=== PATIENT | male | born 1995 | race Caucasian/White ===

== ENCOUNTER 2023-07-13 00:10 | Emergency (ER) | payer OTHER, SELFPAY ==
[2023-07-13 00:24] VITALS: BP 135/77; PULSE 100; RESP 18; TEMP 37.3; O2SAT 97; BMI 25.1
--- NOTE | 2023-07-13 00:52 | DI.CT.S_ITS ---
PROCEDURE: CT HEAD/BRAIN WO CON INDICATIONS: migraine, new pattern TECHNIQUE: Noncontrast 4.5 mm thick angled axial sections acquired from the foramen magnum to the vertex, with coronal and sagittal reformats. For radiation dose reduction, the following was used: automated exposure control, adjustment of mA and/or kV according to patient size. COMPARISON: None. FINDINGS: Image quality: Diagnostic. CSF spaces: Basal cisterns are patent. No extra-axial fluid collections. Ventricles are normal in size and shape. Brain: No midline shift. No intracranial masses or hemorrhage. Jones-white matter interface is normal. Skull and face: Calvarium and visualized facial bones are intact, without suspicious lesions. Sinuses: Visualized sinuses and mastoids are clear. IMPRESSION: No acute intracranial pathology. Dictated by: Curtis Rivera M.D. on 07/13/2023 at 1:32 Approved by: Curtis Rivera M.D. on 07/13/2023 at 1:33
[2023-07-13] MEDS: SODIUM CHLORIDE 0.9% 1,000 ML 1000 ML IV (00:59)
[2023-07-13] MEDS: METOCLOPRAMIDE 10 MG/2 ML INJ IV (01:00)
[2023-07-13] MEDS: KETOROLAC 30 MG/ML VIAL 15 MG IV (01:00)
--- NOTE | 2023-07-13 01:00 | ED.HA ---
HPI - Headache General Chief Complaint: Headache Stated Complaint: massive headache, dizzy Time Seen by Provider: 07/13/23 00:16 Mode of arrival: Ambulatory History of Present Illness HPI Narrative: 27-year-old male presents for gradually worsening migraine headache for 1 day. Patient states he has a history of migraine headaches and childhood but has not had a migraine in at least 15 years. Patient took ibuprofen and went to bed, but his headache woke him up from sleep and he decided to come to the emergency department for evaluation. Reports nausea, denies vomiting. Denies sudden onset of headache. Related Data Allergies Allergy/AdvReac Type Severity Reaction Status Date / Time clarithromycin Allergy Verified 07/13/23 01:09 Review of Systems Review of Systems Narrative: See HPI Exam Initial Vital Signs Initial Vital Signs: Vital Signs Temperature 99.1 F 07/13/23 00:24 Pulse Rate 100 H 07/13/23 00:24 Respiratory Rate 18 07/13/23 00:24 Blood Pressure 135/77 07/13/23 00:24 Pulse Oximetry 97 07/13/23 00:24 Oxygen Delivery Method Room Air 07/13/23 00:24 Const: Awake, alert, uncomfortable, in pain Cardiac: regular rate, regular rhythm RESP: unlabored, conversational without dyspnea GI: Soft, nontender, nondistended Skin: Warm, Dry, intact, no rashes Neuro: AO x3, CN II-XII grossly intact, moves all extremities Course Orders Ordered: ED Orders 07/13/23 00:52 CT head/brain wo con Stat Discontinued Medications Diphenhydramine HCl (Diphenhydramine 50 Mg/Ml Vial) 50 mg IV NOW ONE Stop: 07/13/23 00:52 Last Admin: 07/13/23 01:01 Dose: 50 mg Documented By: KUSH Sodium Chloride (Normal Saline 0.9%) 1,000 mls @ 1,000 mls/hr IV BOLUS ONE Stop: 07/13/23 01:50 Last Infusion: 07/13/23 01:50 Dose: Infused Documented By: Admin: 07/13/23 00:59 Dose: 1,000 mls/hr Documented By: KUSH Ketorolac Tromethamine (Ketorolac 30 Mg/Ml Vial) 15 mg IV NOW ONE Stop: 07/13/23 00:52 Last Admin: 07/13/23 01:00 Dose: 15 mg Documented By: KUSH Metoclopramide HCl (Metoclopramide 10 Mg/2 Ml Inj) 10 mg IV NOW ONE Stop: 07/13/23 00:52 Last Admin: 07/13/23 01:00 Dose: 10 mg Documented By: KUSH Vital Signs Vital signs: Vital Signs - 8 hr 07/13/23 00:24 07/13/23 02:20 Temperature 99.1 F Pulse Rate 100 H 102 H Respiratory Rate 18 16 Blood Pressure 135/77 137/61 Pulse Oximetry 97 97 Oxygen Delivery Method Room Air Room Air MDM - Headache Differential Diagnosis Differential diagnosis: Likely migraine, tension headache and subarachnoid hemorrhage Imaging Data CT scan - head: Radiologist's Impression: PROCEDURE: CT HEAD/BRAIN WO CON INDICATIONS: migraine, new pattern TECHNIQUE: Noncontrast 4.5 mm thick angled axial sections acquired from the foramen magnum to the vertex, with coronal and sagittal reformats. For radiation dose reduction, the following was used: automated exposure control, adjustment of mA and/or kV according to patient size. COMPARISON: None. FINDINGS: Image quality: Diagnostic. CSF spaces: Basal cisterns are patent. No extra-axial fluid collections. Ventricles are normal in size and shape. Brain: No midline shift. No intracranial masses or hemorrhage. Jones-white matter interface is normal. Skull and face: Calvarium and visualized facial bones are intact, without suspicious lesions. Sinuses: Visualized sinuses and mastoids are clear. IMPRESSION: No acute intracranial pathology. Dictated by: Curtis Rivera M.D. on 07/13/2023 at 1:32 Approved by: Curtis Rivera M.D. on 07/13/2023 at 1:33 [facility] Narrative Medical decision making narrative: Migraine headache. Patient was appear uncomfortable but neurologically intact. Since this is patient's 1st headache in over 10 years we will treat as new onset headache pattern and we will order CT scan. Headache cocktail ordered. Patient reassessed, resting comfortably, states that his headache has improved significantly and he feels much better. CT results discussed with patient, no acute intracranial pathology identified. Patient was counseled to take Tylenol and Motrin as needed for headache and to follow up with the primary care doctor. If he has recurrence of his migraines he may benefit from seeing a headache specialist. Note for work provided. Discharge Plan Departure Patient Disposition: Home Clinical Impression: Migraine Instructions: DI for Migraine Activity Restrictions/Additional Instructions: Your CT scan today was normal. I recommend that you follow up with the primary care physician, however if you notice worsening headaches you may need to follow up with a headache doctor. Take Tylenol and Motrin as needed for pain and make sure to drink plenty of fluids. Stand Alone Forms: Patient Portal/API, Work Release Note
[2023-07-13] MEDS: diphenhydrAMINE 50 MG/ML VIAL IV (01:01)
[2023-07-13 02:20] VITALS: BP 137/61; PULSE 102; RESP 16; O2SAT 97
== END 2023-07-13 02:21 | disposition home or self-care (01) ==
PROVIDERS: Emergency Provider Emergency Medicine
DX: G43.909 Migraine, unspecified, not intractable, without status migrainosus (principal); R11.0 Nausea
CPT/HCPCS: 70450; 96361; 96374; 96375; 99283; 99284; J1200; J1885; J2765

== ENCOUNTER 2023-09-26 14:16 | Emergency (ER) | payer OTHER, SELFPAY ==
[2023-09-26 14:30] VITALS: BP 140/90; PULSE 94; RESP 16; TEMP 36.6; O2SAT 98; BMI 25.1
--- NOTE | 2023-09-26 14:50 | ED_ITS ---
HPI - Skin/Abscess/Foreign Bdy <Teresita Linda PA-C - Last Filed: 09/26/23 16:13> General Chief complaint: Skin/Abscess/Foreign Body Stated complaint: Large wood chunk lodged in R Ring Finger Time Seen by Provider: 09/26/23 14:43 Source: patient Mode of arrival: Ambulatory History of Present Illness HPI narrative: Patient is a 28-year-old male who was cleaning his table when he sustained a large splinter through the palmar aspect of his right 4th finger. He attempted to remove the splinter but it was too painful and he came to the emergency room. No history of injury to his finger or hand. States just got out of the [place], thinks [employer] updated within the past 5 years. Related Data Allergies Allergy/AdvReac Type Severity Reaction Status Date / Time clarithromycin Allergy childhood Verified 09/26/23 14:30 reaction Review of Systems <Teresita Linda PA-C - Last Filed: 09/26/23 16:13> Review of Systems ROS Unobtainable: All systems reviewed & are unremarkable except as noted in HPI and below Patient History <Teresita Linda PA-C - Last Filed: 09/26/23 16:13> alcohol intake frequency: 3 or more drinks per day Substance Use Type: marijuana Exam <RASHARD Guillory Last Filed: 09/26/23 16:13> Narrative Exam Narrative: GENERAL: 28 year old patient appears stated age. Well-developed patient, in no acute distress. NEURO: AOx3. HEAD: Atraumatic. Normocephalic. EYES: Pupils equal round and reactive. Extraocular motions intact. No scleral icterus. No injection or drainage. ENT: Nose without bleeding or purulent drainage. Throat without erythema, tonsillar hypertrophy or exudate. Airway patent. RESPIRATORY: No distress. EXTREMITIES: No edema or joint tenderness. Splinter protruding from right 4th finger. SKIN: No rash or erythema of visible areas Initial Vital Signs Initial Vital Signs: Vital Signs Temperature 97.9 F 09/26/23 14:30 Pulse Rate 94 H 09/26/23 14:30 Respiratory Rate 16 09/26/23 14:30 Blood Pressure 140/90 09/26/23 14:30 Pulse Oximetry 98 09/26/23 14:30 Oxygen Delivery Method Room Air 09/26/23 14:30 <Blank Rodriguez DO - Last Filed: 09/27/23 18:51> Initial Vital Signs Initial Vital Signs: Vital Signs Temperature 97.9 F 09/26/23 14:30 Pulse Rate 94 H 09/26/23 14:30 Respiratory Rate 16 09/26/23 14:30 Blood Pressure 140/90 09/26/23 14:30 Pulse Oximetry 98 09/26/23 14:30 Oxygen Delivery Method Room Air 09/26/23 14:30 Procedures <Teresita Linda PA-C - Last Filed: 09/26/23 16:13> Foreign Body OTHER Time of procedure: 02:50 Time Out Performed: yes Foreign Body Removal Site: right and hand Description of foreign body: other (wood splinter) Sedation/Analgesia: other (digit block) Confirmed by:: radiograph Complications: none Post-procedure exam: awake, alert Neurovascular: normal capillary fill, distal light touch sensation intact, distal motor function normal and no change from pre-procedure Nerve Block Nerve Block 1: Time of procedure: 02:48 Time out performed: Yes Local Anesthetic: lidocaine 1% Amount of anesthesia used (mL): 4 Side: right Nerve Blocks: digital Procedure Successful: Yes Patient Tolerated Procedure: Well Complications: none Course <Teresita Linda PA-C - Last Filed: 09/26/23 16:13> Orders Ordered: Discontinued Medications Bacitracin (Bacitracin Oint 0.9 Gm Pckt) 1 applic TOP NOW ONE Stop: 09/26/23 15:27 Last Admin: 09/26/23 15:43 Dose: 1 applic Documented By: VALERIA Vital Signs Vital signs: Vital Signs - 8 hr 09/26/23 14:30 09/26/23 15:42 Temperature 97.9 F Pulse Rate 94 H 88 Respiratory Rate 16 16 Blood Pressure 140/90 122/82 Pulse Oximetry 98 98 Oxygen Delivery Method Room Air Room Air <Blank Rodriguez DO - Last Filed: 09/27/23 18:51> Orders Ordered: Discontinued Medications Bacitracin (Bacitracin Oint 0.9 Gm Pckt) 1 applic TOP NOW ONE Stop: 09/26/23 15:27 Last Admin: 09/26/23 15:43 Dose: 1 applic Documented By: VALERIA Vital Signs Vital signs: Vital Signs - 8 hr 09/26/23 14:30 09/26/23 15:42 Temperature 97.9 F Pulse Rate 94 H 88 Respiratory Rate 16 16 Blood Pressure 140/90 122/82 Pulse Oximetry 98 98 Oxygen Delivery Method Room Air Room Air MDM - Skin/Abscess/Foreign Bdy <Teresita Linda PA-C - Last Filed: 09/26/23 16:13> Imaging Data Extremity x-ray #1: Radiologist's Impression: PROCEDURE: XR FINGER RT MIN 2V INDICATIONS: s/p removal of wood foreign body right 4th finger TECHNIQUE: AP hand, 2 views of the 4th finger(s) acquired. COMPARISON: None. FINDINGS: Bones: No fractures or dislocations. No suspicious bony lesions. Soft tissues: No suspicious soft tissue calcifications. IMPRESSION: No radiopaque foreign bodies are seen. No acute osseous abnormality. Dictated by: Curtis Rivera M.D. on 09/26/2023 at 14:35 Approved by: Curtis Rivera M.D. on 09/26/2023 at 14:36 MDM Narrative Medical decision making narrative: Patient is a 28-year-old male with a large wooden splinter in his right 4th finger. After examination and discussion, patient opted for a digital block. Lidocaine was used and a digital block was successfully placed. Foreign body was removed with tweezers, an area was irrigated with normal saline. X-ray was obtained to look for any retained foreign body which was not seen. Wound was covered with antibiotic ointment and a Band-Aid and patient was discharged. Discharge Plan Departure Patient Disposition: Home Clinical Impression: Wood splinter in finger Instructions: DI for Splinter Removal Activity Restrictions/Additional Instructions: Observe the splinter site of signs of infection such as redness, increasing pain, or pus from the wound. If these occur, please seek reassessment at walk-in clinic. Keep the area covered with a bandaid until it heals. Stand Alone Forms: Patient Portal/API ED Sign-out <Blank Rodriguez DO - Last Filed: 09/27/23 18:51> Cosign ED Attending Cosignature Attestation: I was immediately available in the department for consultation.
--- NOTE | 2023-09-26 14:57 | DI.RAD.S_ITS ---
PROCEDURE: XR FINGER RT MIN 2V INDICATIONS: s/p removal of wood foreign body right 4th finger TECHNIQUE: AP hand, 2 views of the 4th finger(s) acquired. COMPARISON: None. FINDINGS: Bones: No fractures or dislocations. No suspicious bony lesions. Soft tissues: No suspicious soft tissue calcifications. IMPRESSION: No radiopaque foreign bodies are seen. No acute osseous abnormality. Dictated by: Curtis Rivera M.D. on 09/26/2023 at 14:35 Approved by: Curtis Rivera M.D. on 09/26/2023 at 14:36
[2023-09-26 15:42] VITALS: BP 122/82; PULSE 88; RESP 16; O2SAT 98
[2023-09-26] MEDS: BACITRACIN OINT 0.9 GM PCKT 1 APPLIC TOP (15:43)
--- NOTE | 2023-09-26 15:44 | PC.NURSE ---
Patient evaluated, treated, and discharged by provider prior to nursing assessment.
== END 2023-09-26 15:42 | disposition home or self-care (01) ==
PROVIDERS: Emergency Provider Physician Assistant
DX: S60.454A Superficial foreign body of right ring finger, initial encounter (principal)
CPT/HCPCS: 10120; 64450; 73140; 99282; 99283